=== PATIENT | male | born 1960 | race Caucasian/White ===

== ENCOUNTER 2016-07-03 12:30 | Emergency (ER) | payer SELFPAY ==
[~2016-07-03] VITALS: Ht 193 cm; Wt 119.1 kg
[~2016-07-03 12:30] MED LIST: PERC5TAB12 PO; TAMS5CAP PO; ZOFR4TAB PO
[2016-07-03 12:48] VITALS: PULSE 75; RESP 19; TEMP 98.1; O2SAT 99
[2016-07-03 12:50] VITALS: O2SAT 99
[2016-07-03 12:57] VITALS: BP 193/113
[2016-07-03] MEDS ORDERED: ONDANSETRON HCL 4 MG/2 ML VIAL IM ONE (13:00)
[2016-07-03] MEDS ORDERED: HYDROmorphone HCL PF 1 MG/ML VIAL IM ONE (13:00)
[2016-07-03] MEDS ORDERED: oxyCODONE/ACETAMINOPHEN 5 MG/325 MG TAB PO ONE (13:00)
--- NOTE | 2016-07-03 13:07 | PD ---
HPI Chief Complaint: Flank/Kidney Pain Time Seen by Provider: 12:54 Travel History International Travel<30 days: No Contact w/Intl Traveler<30days: No Traveled to known affect area: No History of Present Illness HPI 56-year-old male with history of ureterolithiasis here with complaint of right sided flank pain 1 hour with associated nausea, vomiting. Pain is sharp, primarily in the right CVA and radiates slightly into the abdomen. Associated urinary hesitancy, frequency but denies any known hematuria or dysuria. No fevers or chills. This feels identical to his previous episodes of ureterolithiasis. Patient has always passed stones without any difficulty. PFSH Past Medical History Diminished Hearing: No Kidney Stones: Yes ?: Not Past Surgical History Abdominal Surgery: Yes (left hernia) Appendectomy: Yes Cholecystectomy: Yes Gynecologic Surgery: Yes (kidney stent) Other Surgery: Yes (left hand) Social History Alcohol Use: No Tobacco Use: Yes (03/15 ppd) Substance Use: No Allergies-Medications (Allergen,Severity, Reaction): Coded Allergies: Toradol (Verified Allergy, Severe, hives, sob, 07/03/16) Demerol (Verified Allergy, Intermediate, nausea and vomiting, 07/03/16) Reported Meds & Prescriptions Reported Meds & Active Scripts Active Percocet (Oxycodone-Acetaminophen) 5-325 mg Tab 1 Tab PO Q6H PRN Reported Percocet (Oxycodone-Acetaminophen) 5-325 mg Tab 1 Tab PO TODAY PRN Zofran (Ondansetron HCl) 4 Mg Tab 4 Mg PO Q12HR PRN Flomax (Tamsulosin HCl) 0.4 Mg Cap 0.4 Mg PO DAILY Review of Systems Except as stated in HPI: all other systems reviewed are Neg Physical Exam Narrative GENERAL: Obese male in moderate distress SKIN: Focused skin assessment warm/dry. HEAD: Normocephalic. EYES: No scleral icterus. No injection or drainage. ENT: Mucous membranes pink and moist. NECK: Supple CARDIOVASCULAR: Regular rate and rhythm. No murmur appreciated. Hypertensive RESPIRATORY: No accessory muscle use. Clear to auscultation. Breath sounds equal bilaterally. GASTROINTESTINAL: Abdomen soft, non-tender, obese. Right sided CVA tenderness MUSCULOSKELETAL: Normal gait NEUROLOGICAL: Awake and alert. Normal speech. PSYCHIATRIC: Appropriate mood and affect; insight and judgment normal. Data Data Last Documented VS Vital Signs Date Time Temp Pulse Resp B/P Pulse Ox O2 Delivery O2 Flow Rate FiO2 07/03/16 12:57 193/113 07/03/16 12:48 98.1 75 19 99 Orders Urinalysis - C+S If Indicated (07/03/16 12:57) Oximetry (07/03/16 12:57) Ondansetron Inj (Zofran Inj) (07/03/16 13:00) Hydromorphone Pf Inj (Dilaudid Pf Inj) (07/03/16 13:00) Oxycodone-Acetamin 5-325 Mg (Percocet (07/03/16 13:00) Labs Laboratory Tests Test 07/03/16 12:50 Urine Collection Type CLEAN CATCH Urine Color YELLOW Urine Turbidity CLOUDY Urine pH 5.5 Urine Specific [place] 1.015 Urine Protein NEG mg/dL Urine Glucose (UA) NEG mg/dL Urine Ketones NEG mg/dL Urine Occult Blood LARGE Urine Nitrite NEG Urine Bilirubin NEG Urine Leukocyte Esterase NEG Urine RBC INNUM /hpf Microscopic Urinalysis Comment CULT NOT INDICATED MDM Medical Decision Making Medical Screen Exam Complete: Yes Emergency Medical Condition: Yes Medical Record Reviewed: Yes Differential Diagnosis 56-year-old male with history of ureterolithiasis here with right sided flank pain, nausea vomiting and urinary hesitancy times one hour. Differential includes ureterolithiasis, UTI/pyelonephritis, musculoskeletal and less likely abdominal pathology given overall abdominal examination is benign. Narrative Course Patient placed on monitor. Given 4 mg Zofran, 1 mg Dilaudid, one tablet Percocet. Urinalysis showed blood but no evidence of infection. Patient felt improved and will be discharged home. Diagnosis Primary Impression: Renal colic on right side Referrals: [facility] call for appointment Urologist call for appointment Additional Instructions: Pain and nausea medications as needed. Drink plenty of fluids. Med/Other Pt SpecificInfo: Prescription(s) given Scripts Oxycodone-Acetaminophen (Percocet)5-325 mg Tab1-2 Tab PO Q6H PRN (PAIN) #15 TAB Ref 0 Prov:Mary Stanford MD 07/03/16 Promethazine (Phenergan)25 Mg Tab25 Mg PO Q6H PRN (Nausea/Vomiting) #10 TAB Ref 0 Prov:Mary Stanford MD 07/03/16 Disposition: 01 DISCHARGE HOME Condition: Stable Mary Stanford MD Jul 03, 2016 13:07
[2016-07-03 13:14] LABS: BLOOD, URINE LARGE (NEG); GLUCOSE,URINE NEG (NEG); KETONE, URINE NEG (NEG); NITRITE,URINE NEG (NEG); PH, URINE 5.5 (5.0-8.5)
[2016-07-03 13:22] LABS: METHOD OF COLLECTION CLEAN CATCH; URINE COLOR YELLOW (YELLW/STRAW)
[2016-07-03 13:23] LABS: COMMENT (UR) CULT NOT INDICATED; CULTURE IF INDICATED CULT NOT INDICATED; RBC, URINE INNUM /hpf (0-3)
[2016-07-03] MEDS ORDERED: PERC5TAB12 PO (13:37)
[2016-07-03] MEDS ORDERED: PROM25TA5 PO (13:37)
[2016-07-03 13:47] VITALS: BP 151/84
== END 2016-07-03 13:46 | disposition home or self-care (01) ==
LOC: PHED 12:30
DX: N23 Unspecified renal colic (principal); Z87.442 Personal history of urinary calculi; F17.210 Nicotine dependence, cigarettes, uncomplicated
CPT/HCPCS: 81001; 96372; 99284; J1170; J2405